=== PATIENT | female | born 1990 | race Hispanic/Latino ===

== ENCOUNTER → 2024-05-14 | Outpatient (CLI) | payer MEDICAID | END | disposition home or self-care (01) | LOC: SHCH 10:02 | PROVIDERS: ATTEND Internal Medicine | DX: I51.9 Heart disease, unspecified (principal) | CPT/HCPCS: 93306 ==

== ENCOUNTER 2024-10-11 09:47 | Observation (INO) | payer MEDICAID ==
[2024-10-09 09:34] VITALS: BP 128/64; PULSE 91; RESP 18; TEMP 97.7
[2024-10-09 09:34] LABS: BASOPHILS # (AUTO) 0.05 K/uL (0.00-0.20); BASOPHILS % (AUTO) 0.6 % (0.0-5.0); EOSINOPHILS # (AUTO) 0.15 K/uL (0.00-0.70); EOSINOPHILS % (AUTO) 1.7 % (0.0-8.0); HEMATOCRIT 40.6 % (36-48); IMMATURE GRANULOCYTE ABSOLUTE 0.03 K/uL (0-1); LYMPHOCYTES # (AUTO) 3.3 K/uL (1.0-4.8); LYMPHOCYTES % (AUTO) 36.4 % (21.0-51.0); MEAN CORPUSCULAR HEMOGLOBIN 31.5 pg (27.0-33.0); MEAN CORPUSCULAR HGB CONC 33.3 g/dL (32.0-36.0); MEAN CORPUSCULAR VOLUME 94.9 fL (79-99); MONOCYTES # (AUTO) 0.6 K/uL (0.1-1.0); MONOCYTES % (AUTO) 7.1 % (3.0-13.0); NEUTROPHILS # (AUTO) 4.9 K/uL (1.8-7.7); NEUTROPHILS % (AUTO) 53.9 % (40.0-77.0); PLATELET COUNT (AUTO) 278 K/uL (130-400); RED BLOOD CELL COUNT(AUTO) 4.28 MIL/uL (4.00-5.50); RED CELL DISTRIBUTION WIDTH 12.2 % (11.0-15.5)
[2024-10-09 09:52] LABS: CREATININE 0.7 mg/dL (0.5-1.0); POTASSIUM 3.7 mmol/L (3.5-5.1)
[2024-10-09 09:56] LABS: INR 1.23 (0.85-1.15); PROTHROMBIN TIME 13.5 SEC (9.6-11.6)
[2024-10-09 09:57] LABS: PARTIAL THROMBOPLASTIN TIME 29.1 SEC (26.3-35.5)
[2024-10-11] VITALS (25 sets, daily range): BP systolic 106–135; BP diastolic 50–81; PULSE 94–108; RESP 13–24; TEMP 96.2–100.3; O2SAT 93–95
[~2024-10-11] VITALS: Ht 152.4 cm; Wt 102.0 kg
[2024-10-11] MEDS: LACTATED RINGERS 1000ML 1,000 ML IV ONE
[~2024-10-11 09:47] MED LIST: AMIT25TA9 PO; ATOG60TA PO; ERGO500093 PO; LEVE750T66 PO; LORA10TA7 PO; OXCA300T28 PO; OXCA600T18 PO; TOPI-97 PO; TRAZ-253 PO; VERA120C3 PO
[2024-10-11] MEDS ORDERED: rocuRONium bROMide 10MG/1ML 5ML VL ONE (11:22)
[2024-10-11] MEDS ORDERED: FENTanyl CITRate PF 50 MCG/1 ML 2ML VIAL ONE (11:22)
[2024-10-11] MEDS ORDERED: proPOFol 10 MG/ML 20ML VIAL IV ONE (11:22)
[2024-10-11] MEDS ORDERED: LIDOCAINE PF 100MG/5ML (2%) SYRINGE 5ML ONE (11:22)
[2024-10-11] MEDS: FAMOTIDINE 20MG VIAL IV ONE (11:48)
[2024-10-11] MEDS: acetaMINOPHEN 100 ML ONE (11:48)
[2024-10-11] MEDS ORDERED: MIDAZOLAM HCL 1 MG/ML 2ML VIAL ONE (12:14)
[2024-10-11] MEDS ORDERED: ondanSETRON 4MG INJ ONE (12:20)
[2024-10-11] MEDS ORDERED: dexaMETHasone SOD PHOSPHATE 10MG/ML 1ML VIAL ONE (12:20)
[2024-10-11] MEDS: ceFAZolin SODIUM 2 GM VIAL ONE (12:25)
[2024-10-11] MEDS: metRONIDazole 500MG/100ML BAG 200 ML ONE (12:27)
[2024-10-11] MEDS: BUPIvacaine/PF 0.25% 30ML VIAL IJ ONE (12:43)
[2024-10-11] MEDS ORDERED: ALBUTEROL INHALER 90MCG/INH IH ONE (13:06)
[2024-10-11] MEDS ORDERED: NEOSTIGMINE METHYLSULFATE 1MG/ML IV ONE (13:45)
[2024-10-11] MEDS ORDERED: GLYCOPYRROLATE 0.2 MG/ML 5 ML VIAL ONE (13:45)
[2024-10-11] MEDS ORDERED: HYDROcod/acetaMINOPHEN 7.5/325 MG 15 ML UDCUP PO PRN (14:30)
[2024-10-11] MEDS ORDERED: PROCHLORPERAZINE 10MG/2ML INJ IV PRN (14:30)
[2024-10-11] MEDS ORDERED: hydroMORPHone 0.5 MG SYG (0.5MG/0.5ML) IVP PRN (14:30)
[2024-10-11] MEDS ORDERED: ondanSETRON 4MG INJ IVP PRN (14:30)
[2024-10-11] MEDS: ketOROlac 30MG VIAL (30MG/ML) IV SCH (14:30)
--- NOTE | 2024-10-11 14:32 | OP ---
Operative Note: DATE OF PROCEDURE: 10/11/24 SURGEON: TERRI OZUNA MD LOCOMOTIVE MECHANIC APPRENTICE: [Please review operative record] ANESTHESIA: [General and local] ANESTHESIOLOGIST/EMPLOYMENT ADJUDICATOR: [Please review operative record] PREOPERATIVE DIAGNOSIS: [Morbid obesity and associated comorbidities including metabolic syndrome] POSTOPERATIVE DIAGNOSIS: [Same] SYNOPSIS: [Sleeve gastrectomy performed over a adult size endoscope, intraoperative EGD with no air leaks, no obstruction, no active intraluminal bleeding] PROCEDURE: [Robotic assisted laparoscopic vertical sleeve gastrectomy, intraoperative EGD, omentoplasty] ESTIMATED BLOOD LOSS: [30 cc] INDICATIONS: [Patient is a 33-year-old female with morbid obesity and associated comorbidities including metabolic syndrome who has previously failed diet exercise and medical therapy in order to decrease weight in order to improve her quality of life. Recommendation was given for bariatric surgery. After completing all her clearances, it was decided that vertical sleeve gastrectomy was the best option for this patient. Risks, benefits, alternatives were discussed with the patient. All questions were answered. Patient agreed to proceed with vertical sleeve gastrectomy.] DESCRIPTION OF PROCEDURE: [[After appropriate consent was obtained, the patient was brought into the operating room placed in supine position on the operating table. SCDs were placed, preop antibiotics were given. Patient underwent induction of general anesthesia, endotracheal intubation. Patient was prepped and draped in the usual sterile fashion. Time-out was performed. Upper endoscopy was performed by placing the adult endoscope through the mouth into the esophagus and into the stomach, gastric juices were sucked out. The endoscope was left in the esophagus for later use. Through a left subcostal incision, Veress needle was inserted into the peritoneal cavity. Insufflation was allowed to 12 mmHg. Through a supraumbilical incision, 8 mm trocar with laparoscope were inserted into the peritoneal cavity using [employer]. Veress needle and this vicinity were examined with no signs of injury. Rest of my trocars were placed under direct visualization. A snake liver retractor was placed through a right upper quadrant incision in order to retract the left lobe of the liver anteriorly. At this time patient was positioned on a 20 degree reverse Trendelenburg. The payever robot was docked. We mobilize the greater curvature of the stomach from the angle of his down to 3 cm proximal to the pylorus using the vessel sealer scalpel. We applied a blue load 4 cm from the pylorus parallel to the lesser curvature. We then passed the flexible endoscope from the esophagus into the stomach along the lesser curvature of the stomach and into the pylorus. We applied a series of white loads parallel to the endoscope up towards the angle of his. The staple lines were examined on both sides and found to be intact. Endoscopy with insufflation revealed no leaks, no active intraluminal bleeding, no obstruction. Scope was then withdrawn. And omental covering was placed over the staple edge of the stomach by suturing the omentum to the lesser curvature with the running 3-0 V lock absorbable suture. This completed the omentoplasty. The payever robot was undocked at this time. The gastric remnant was brought out through a right upper quadrant port site. Final inspection revealed no bleeding or injury. We closed the 12 mm port with 0 Vicryl suture through a suture Passer. All instruments and trocars were removed. The abdomen was deflated. The skin incisions were closed with 4-0 Monocryl suture. Dermabond was applied over the incision. The procedure was tolerated well. Patient went to recovery in a good condition.] TERRI OZUNA MD Oct 11, 2024 14:32
[2024-10-11] MEDS: PROMETHAZINE HCL 25 MG/ML 1ML AMPULE IM ONE (14:38)
[2024-10-11] MEDS: metoCLOPRAmide 10 MG/2 ML VIAL ONE (14:38)
[2024-10-11] MEDS: ondanSETRON 4MG INJ ONE (14:54)
[2024-10-11] MEDS: ketOROlac 15MG/ML VIAL (15MG/ML) ONE (15:04)
[2024-10-11] MEDS: LACTATED RINGERS 1000ML 1,000 ML IV SCH (15:05)
--- NOTE | 2024-10-11 15:45 | NUR ---
Resting in bed dermabond incisions clean and intact,lr at 150/ml hr.
--- NOTE | 2024-10-11 18:00 | NUR ---
Oob with assistance ambulated to bathroom and voided damian well
[2024-10-11] MEDS: OXcarbazepine 300 MG TAB PO SCH (20:20)
[2024-10-11] MEDS: AMITRIPTYLINE 25 MG TABLET PO SCH (20:20)
[2024-10-11] MEDS: topIRAMate 100 MG TAB PO SCH (20:20)
[2024-10-11] MEDS: ENOXAPARIN SODIUM 40 MG/0.4 ML SYRINGE SQ SCH (20:24)
[2024-10-11] MEDS: LEVETIRACETAM 750 MG PO SCH (20:24)
[2024-10-11] MEDS: VERAPAMIL PO SCH (20:24)
[2024-10-12] VITALS: BP 122/52; PULSE 91; RESP 18; TEMP 98.2
[2024-10-12 04:00] VITALS: BP 115/62; PULSE 97; RESP 20; TEMP 98.2
[2024-10-12 07:30] VITALS: O2SAT 96
[2024-10-12 08:00] VITALS: BP 102/54; PULSE 88; RESP 16; TEMP 98.3
[2024-10-12] MEDS: ATOGEPANT 60 MG PO SCH (09:00)
--- NOTE | 2024-10-12 11:17 | NUR ---
DCP CM MET WITH PT ASSESSMENT DONE. PATIENT IS INDEPENDENT PRIOR TO SURGERY, LIVES AT HOME WITH SISTER. DENIES ANY EQUIPMENT/SERVICES. FEELS SAFE TO GO BACK HOME, SISTER ABLE TO ASSIST WITH TRANSPORTATION AND NEEDS NECESSARY. PT USES [facility] IN [place] FOR MEDS. DCP HOME ONCE STABLE. CM TO CONTINUE TO FOLLOW UP. Addendum: 10/12/24 at 1121 by PRINCESS MORRELL LVN CM Amended: Links added.
[2024-10-12 12:00] VITALS: BP 141/89; PULSE 85; RESP 16; TEMP 98.4
--- NOTE | 2024-10-12 13:13 | NUR ---
Nutrition consult per Pt bariatric Reviewed labs, notes, and medications. Family in room during visit. Pt reported <50%PO intake, NKFA, has flatus, denied N/V, has been walking, had [address], still has RD education, no MVI, PCP when she is sick, mom is taking care of her post op. RD reviewed educational material for post-op diet recommendations. Pt was informed of importance of lifelong vitamin/mineral supplementation, choosing protein first during meals (pt was educated on higher protein requirements), choosing low calorie, sugar free, carbonated free and caffeine beverages. RD also informed pt on lifelong commitment to exercise and dietary recommendations for optimal success post surgery. RD encouraged getting blood work every 3 to 6 months, including B-vitamins, Pt verbalized understanding. RD informed Pt on moving around after procedure to prevent DVT, Pt verbalized understanding. Pt was encouraged to contact RD as questions arise and to attend support groups. Fair compliance suspected. Pt will benefit from outpatient bariatric dietitian follow up post procedure. Pt to follow up with PCP for labs. Recommendations: -Continue phase 1 bariatric diet for 1 week -Monitor electrolytes -Monitor diet tolerance -Monitor BM -Monitor wts -Monitor PO intake -Recommend Pt to follow up with PCP -Monitor goals of care RD available for consult per protocol Addendum: 10/12/24 at [address] Amended: Links added.
[2024-10-12 16:00] VITALS: BP 137/91; PULSE 94; RESP 16; TEMP 98.5
== END 2024-10-12 18:15 | disposition home or self-care (01) ==
LOC: DAH 09:47 → INTOOBSV 09:48 → DAH 09:48 → DAHIP 09:48 → 4AH 15:38
PROVIDERS: ADMIT Surgery; ATTEND Surgery
DX: E66.01 Morbid (severe) obesity due to excess calories (principal); K76.0 Fatty (change of) liver, not elsewhere classified; E78.5 Hyperlipidemia, unspecified; M15.9 Polyosteoarthritis, unspecified; I63.9 Cerebral infarction, unspecified; E55.9 Vitamin D deficiency, unspecified; E88.810 Metabolic syndrome; Z68.41 Body mass index [BMI] 40.0-44.9, adult; Z79.899 Other long term (current) drug therapy
CPT/HCPCS: 36415; 43235; 80048; 85025; 85610; 85730; 86850; 86900; 86901; 88307; 88312; 96372; 96374; 96376; G0378; J1100; J1650; J1885; J2003; J2250; J2405; J2550; J2704; J2710; J2765; J3010; J3490; J7120; A4215; A4216; A4221; A4222; A4223; A4600; A4663; A6260; J0665; J0690